=== PATIENT | male | born 1960 | race Caucasian/White ===

== ENCOUNTER 2016-11-02 05:38 | Inpatient (IN) | payer OTHER ==
[2016-11-02 05:58] LABS: Hematocrit 38.8 % (42.0-52.0); Hemoglobin 13.3 gm/dL (13.5-18.0); Mean Cell Volume 94.6 fl (78-100); Mean Corpuscular Hemoglobin 32.4 pg (27-31); Mean Corpuscular Hgb Conc 34.3 g/dl (32-36); Mean Platelet Volume 9.3 fl (6.0-9.5); Neutrophil # 9.5 K/mm3 (1.3-6.0); Neutrophil % 70.9 % (42-75.0); Platelet Count 277 K/mm3 (150-450); Red Cell Distribution Width 12.1 % (11.5-14.0); White Blood Count 13.4 K/mm3 (4.0-10.5)
[2016-11-02 06:07] LABS: INR 0.96 INR (0.90-1.10)
[2016-11-02 06:11] LABS: Albumin * 3.6 gm/dl (3.4-5.0); BUN/Creatinine Ratio 12.3 (9.0-21.6); Bilirubin, Total 0.3 mg/dL (0.0-1.1); Ca. Corrected For Albumin 8.5 mg/dL (8.4-10.2); Calcium * 8.5 mg/dL (7.9-10.9); Carbon Dioxide 22.2 mmol/L (24-32.6); Potassium 4.2 mmol/L (3.4-4.6)
[2016-11-02 06:15] LABS: Partial Thrombolplastin Time 20.7 Seconds (24-32)
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
[2016-11-02] MEDS ORDERED: MORPHINE SULFATE 4 MG/ML SYRG ONE (08:16)
[2016-11-02] MEDS ORDERED: MORPHINE SULFATE 4 MG/ML SYRG IV ONE ×2 (08:20→08:32)
[2016-11-02] MEDS: NORMAL SALINE 1,000 ML IV PRN ×2 (09:03→18:48)
[2016-11-02 09:18] LABS: Urine Bilirubin Negative (NEGATIVE); Urine Ketone 5 mg/dL (NEGATIVE); Urine Nitrite Negative (NEGATIVE); Urine Protein Negative (NEGATIVE); Urine Urobilinogen Normal (NORMAL)
[2016-11-02] MEDS ORDERED: ONDANSETRON HCL/PF 2 MG/ML VIAL IV PRN (09:25)
[2016-11-02 09:34] LABS: Urine Appearance Clear; Urine Bacteria None Seen; Urine Blood 10 /ul (NEGATIVE); Urine Color Yellow; Urine RBC None Seen /hpf (0-5); Urine WBC None Seen /hpf (0-5)
[2016-11-02 09:38] LABS: Cocaine Ur Negative (NEGATIVE); Urine Barbiturate Negative (NEGATIVE); Urine Benzodiazepines Negative (NEGATIVE); Urine Opiates Negative (NEGATIVE); Urine PCP Negative (NEGATIVE); Urine THC Negative (NEGATIVE)
[2016-11-02] MEDS: MORPHINE SULFATE 4 MG/ML SYRG IV PRN ×2 (09:54→10:20)
[2016-11-02] MEDS: PANTOPRAZOLE SODIUM 40 MG in NORMAL SALINE 100 ML IV SCH (10:00)
[2016-11-02] MEDS: MORPHINE SULFATE 2 MG/ML DISP.SYRIN IV PRN ×8 (11:12→22:20)
[2016-11-02] MEDS: oxyCODONE HCL/ACETAMINOPHEN 1 TAB TABLET PO PRN ×2 (16:21→20:31)
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
[2016-11-03] MEDS: oxyCODONE HCL/ACETAMINOPHEN 1 TAB TABLET PO PRN ×5 (01:24→22:43)
[2016-11-03] MEDS: MORPHINE SULFATE 2 MG/ML DISP.SYRIN IV PRN (01:28)
[2016-11-03] MEDS: NORMAL SALINE 1,000 ML IV PRN ×3 (02:51→18:51)
[2016-11-03] MEDS ORDERED: BISACODYL 5 MG TABLET.DR PO ONE ×2 (06:45→18:10)
[2016-11-03] MEDS: KETOROLAC TROMETHAMINE 30 MG/ML VIAL IV SCH ×3 (07:35→18:33)
[2016-11-03] MEDS: PANTOPRAZOLE SODIUM 40 MG in NORMAL SALINE 100 ML IV SCH (09:16)
[2016-11-03] MEDS: SODIUM CHLORIDE 45 SPRAY BTL NS SCH ×2 (13:49→21:12)
[2016-11-03] MEDS: FLUTICASONE PROPIONATE 120 SPRAY INHALER NS SCH (13:49)
--- NOTE | 2016-11-03 18:25 | PN ---
Dictated Progress Note - Date and Time Seen: Date: 11/03/16 Time: 18:12 - Progress Note Narrative: Vital Signs - Last Taken Temp 37.0 C 11/03/16 14:27 Pulse 63 11/03/16 14:27 Resp 20 11/03/16 14:27 BP 108/48 11/03/16 14:27 Pulse Ox 95 11/03/16 14:27 His VS have remained normal. Has resisted being OOB without a lot of encouragement, but did ambulate to BR with walker. Not much appetite, but did pass gas. Very gurgley--upper airway noise changes with cough. Poor inspiratory effort. CXR no visible pneumothorax. Will add Toradol for pain and institute cornet. Encourage OOB with goal of discharge in AM
[2016-11-04] MEDS: KETOROLAC TROMETHAMINE 30 MG/ML VIAL IV SCH ×4 (01:28→18:42)
[2016-11-04] MEDS: NORMAL SALINE 1,000 ML IV PRN (02:56)
[2016-11-04] MEDS: oxyCODONE HCL/ACETAMINOPHEN 1 TAB TABLET PO PRN ×5 (02:57→19:36)
[2016-11-04] MEDS: SODIUM CHLORIDE 45 SPRAY BTL NS SCH ×2 (09:37→20:19)
[2016-11-04] MEDS: FLUTICASONE PROPIONATE 120 SPRAY INHALER NS SCH (09:37)
[2016-11-04] MEDS: PANTOPRAZOLE SODIUM 40 MG in NORMAL SALINE 100 ML IV SCH (10:19)
[2016-11-04] MEDS ORDERED: BISACODYL 5 MG TABLET.DR PO ONE (15:08)
--- NOTE | 2016-11-04 19:05 | PN ---
Dictated Progress Note - Date and Time Seen: Date: 11/04/16 Time: 19:00 - Progress Note Narrative: Vital Signs - Last Taken Temp 36.6 C 11/04/16 18:54 Pulse 75 11/04/16 18:54 Resp 20 11/04/16 18:54 BP 114/59 11/04/16 18:54 Pulse Ox 91 11/04/16 18:54 He is much more alert. His rib pain has been better controlled with only Percocet. He still cannot take a deep breath or cough very effectively, however has been using a coronet frequently. He does desaturate with ambulation but has acceptable SaO2 when sitting up. He has ambulated in the [place] and has been seen by PT. His PO intake is still poor however he is passing gas and has no abdominal pain. He has some upper airway gurgling which changes and clears with cough Chest x-ray today reveals no increase in the pneumothorax however there is some increased pleural fluid bilaterally and inspiratory effort is poor. Will encourage pulmonary toilet and increased activity. The situation was discussed with his family. Possibly could be discharged home tomorrow if adequately mobile.
[2016-11-05] MEDS: oxyCODONE HCL/ACETAMINOPHEN 1 TAB TABLET PO PRN ×5 (04:48→18:53)
[2016-11-05] MEDS: KETOROLAC TROMETHAMINE 30 MG/ML VIAL IV SCH ×3 (06:36→13:22)
[2016-11-05] MEDS: SODIUM CHLORIDE 45 SPRAY BTL NS SCH ×2 (08:17→21:02)
[2016-11-05] MEDS: FLUTICASONE PROPIONATE 120 SPRAY INHALER NS SCH (08:17)
[2016-11-05] MEDS: PANTOPRAZOLE SODIUM 40 MG in NORMAL SALINE 100 ML IV SCH (10:21)
[2016-11-05] MEDS ORDERED: BISACODYL 5 MG TABLET.DR PO ONE (18:39)
--- NOTE | 2016-11-05 18:44 | PN ---
Dictated Progress Note - Date and Time Seen: Date: 11/05/16 Time: 18:41 - Progress Note Narrative: Vital Signs - Last Taken Temp 37.1 C 11/05/16 14:00 Pulse 73 11/05/16 14:00 Resp 24 H 11/05/16 14:00 BP 132/53 11/05/16 14:00 Pulse Ox 93 11/05/16 14:00 VS normal and pain controlled if he takes Percocet on schedule. He still is not taking PO well and although passing gas, no BM. No abdominal pain. Walked better/[place] today with less desaturation. CXR shows some improvement of right fluid, pneumothorax more visible (technique ) but no bigger. Will continue 02 and pulmonary toilet with repeat CXR in AM. Repeat Dulcolax
[2016-11-06] MEDS: oxyCODONE HCL/ACETAMINOPHEN 1 TAB TABLET PO PRN ×5 (03:09→21:09)
[2016-11-06] MEDS: PANTOPRAZOLE SODIUM 40 MG in NORMAL SALINE 100 ML IV SCH (09:34)
[2016-11-06] MEDS: FLUTICASONE PROPIONATE 120 SPRAY INHALER NS SCH (09:35)
[2016-11-06] MEDS: SODIUM CHLORIDE 45 SPRAY BTL NS SCH ×2 (09:35→21:46)
[2016-11-06] MEDS: KETOROLAC TROMETHAMINE 30 MG/ML VIAL IV SCH ×4 (12:07→14:11)
[2016-11-06] MEDS ORDERED: MAGNESIUM HYDROXIDE 30 ML UDC PO ONE (16:45)
--- NOTE | 2016-11-06 19:38 | PN ---
Dictated Progress Note - Date and Time Seen: Date: 11/06/16 Time: 19:32 - Progress Note Narrative: Vital Signs - Last Taken Temp 36.7 C 11/06/16 18:11 Pulse 58 L 11/06/16 18:11 Resp 20 11/06/16 18:11 BP 121/58 11/06/16 18:11 Pulse Ox 93 11/06/16 18:11 VS normal. Pain much better. Coughed up a lot of thick green phlem. CXR no appreciable change. Ambulating better. PO still poor, but no abdominal pain and passing gas,"feels like I will have a bowel movement". Will add Levaquin, recheck CXR in AM and probably discharge home tomorrow if continues to improve.
[2016-11-06] MEDS: LEVOFLOXACIN/D5W 750 MG/150 ML BAG IV SCH (21:44)
[2016-11-07] MEDS: oxyCODONE HCL/ACETAMINOPHEN 1 TAB TABLET PO PRN ×4 (02:03→20:11)
[2016-11-07] MEDS: FLUTICASONE PROPIONATE 120 SPRAY INHALER NS SCH (08:26)
[2016-11-07] MEDS: SODIUM CHLORIDE 45 SPRAY BTL NS SCH ×2 (08:26→20:24)
[2016-11-07] MEDS: PANTOPRAZOLE SODIUM 40 MG in NORMAL SALINE 100 ML IV SCH (08:31)
[2016-11-07] MEDS ORDERED: BISACODYL 10 MG SUPP.RECT RC ONE (09:49)
[2016-11-07] MEDS ORDERED: MINERAL OIL 1 ENEMA BTL RC ONE (14:53)
[2016-11-07] MEDS: oxyCODONE HCL 5 MG TABLET PO PRN ×2 (15:10→18:30)
[2016-11-07] MEDS ORDERED: oxyCODONE HCL 5 MG TABLET PO PRN ×2 (18:35→18:36)
--- NOTE | 2016-11-07 18:47 | PN ---
Dictated Progress Note - Date and Time Seen: Date: 11/07/16 Time: 18:43 - second visit - Progress Note Narrative: Vital Signs - Last Taken Temp 36.8 C 11/07/16 15:16 Pulse 73 11/07/16 15:16 Resp 20 11/07/16 15:16 BP 148/66 11/07/16 15:16 Pulse Ox 91 11/07/16 15:16 VS are normal, Sa02 is 99% with 3Lnc although goes down with ambulation. More upper airway noise this morning and does not cough well. Would only walk twice. Very poor PO intake. Did have a BM and passed gas so abdomen less protuberant---refused fleet enema to move more. Discussed option of chest tube both visits and he specifically declined multiple times. Discussed the situation with his . He is not ready for home. Will change to Roxycodone to see if can achieve better pain relief and better cough. He agreed to try to walk one more time tonight.
[2016-11-07] MEDS: LEVOFLOXACIN/D5W 750 MG/150 ML BAG IV SCH (20:15)
[2016-11-07] MEDS ORDERED: SENNOSIDES/DOCUSATE SODIUM 1 TAB TABLET PO SCH (21:00)
[2016-11-07] MEDS ORDERED: LIDOCAINE 1 PATCH ADH..PATCH TP SCH (21:00)
[2016-11-08] MEDS: oxyCODONE HCL/ACETAMINOPHEN 1 TAB TABLET PO PRN ×3 (00:58→10:39)
[2016-11-08 07:47] VITALS: BP 141/63
[2016-11-08] MEDS: PANTOPRAZOLE SODIUM 40 MG in NORMAL SALINE 100 ML IV SCH (08:44)
[2016-11-08] MEDS: SODIUM CHLORIDE 45 SPRAY BTL NS SCH (08:45)
[2016-11-08] MEDS: FLUTICASONE PROPIONATE 120 SPRAY INHALER NS SCH (08:45)
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
== END 2016-11-08 12:50 | disposition home or self-care (01) | DRG 200 ==
LOC: ER 05:38 → MS 09:00
PROVIDERS: ADMIT Surgery; ATTEND Surgery
DX: S27.0XXA Traumatic pneumothorax, initial encounter (principal); S27.321A Contusion of lung, unilateral, initial encounter; S22.43XA Multiple fractures of ribs, bilateral, initial encounter for closed fracture; V48.5XXA Car driver injured in noncollision transport accident in traffic accident, initial encounter; Y92.410 Unspecified street and highway as the place of occurrence of the external cause; G93.0 Cerebral cysts; F17.210 Nicotine dependence, cigarettes, uncomplicated
CPT/HCPCS: 36415; 70450; 71010; 71020; 71260; 72125; 72170; 74177; 80053; 80307; 81001; 82150; 85025; 85610; 85730; 86850; 86900; 93005; 96374; 97110; 97161; 97530; 99285; G0481

== ENCOUNTER 2016-11-18 11:50 | Emergency (ER) | payer OTHER ==
[2016-11-18 12:36] LABS: Albumin * 2.9 gm/dl (3.4-5.0); Anion Gap 15.2 mmol/L (6.8-13.8); BUN/Creatinine Ratio 11.5 (9.0-21.6); Bilirubin, Total 0.6 mg/dL (0.0-1.1); Ca. Corrected For Albumin 9.5 mg/dL (8.4-10.2); Calcium * 8.9 mg/dL (7.9-10.9); Potassium 4.2 mmol/L (3.4-4.6); Total Protein 7.6 gm/dL (6.2-8.2)
[2016-11-18 12:42] LABS: Hematocrit 34.9 % (42.0-52.0); Mean Cell Volume 93.8 fl (78-100); Mean Corpuscular Hemoglobin 32.3 pg (27-31); Mean Corpuscular Hgb Conc 34.4 g/dl (32-36); Mean Platelet Volume 9.4 fl (6.0-9.5); Neutrophil # 9.8 K/mm3 (1.3-6.0); Neutrophil % 74.2 % (42-75.0); Platelet Count 511 K/mm3 (150-450); Red Blood Count 3.72 M/mm3 (4.7-6.0); Red Cell Distribution Width 11.9 % (11.5-14.0); White Blood Count 13.2 K/mm3 (4.0-10.5)
[2016-11-18] MEDS ORDERED: MORPHINE SULFATE 4 MG/ML SYRG IM ONE (13:14)
[2016-11-18] MEDS ORDERED: PROMETHAZINE HCL 25 MG/ML AMPUL IM ONE (13:14)
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
[2016-11-18] MEDS ORDERED: MORPHINE SULFATE 4 MG/ML SYRG ONE (13:23)
[2016-11-18] MEDS ORDERED: PROMETHAZINE HCL 25 MG/ML AMPUL ONE (13:23)
[2016-11-18] MEDS ORDERED: APIXABAN 2.5 MG TABLET PO ONE (15:00)
[2016-11-18 15:15] VITALS: BP 119/63
== END 2016-11-18 15:08 | disposition home or self-care (01) ==
LOC: ER 11:50
DX: I82.4Z2 Acute embolism and thrombosis of unspecified deep veins of left distal lower extremity (principal); Z72.0 Tobacco use

== ENCOUNTER 2017-08-10 08:10 | Day surgery (SDC) | payer OTHER ==
[~2017-08-10 08:10] MED LIST: RINGER'S SOLUTION,LACTATED 1,000 ML IV PRN
[2017-08-10] MEDS ORDERED: RINGER'S SOLUTION,LACTATED 1,000 ML IV ONE (08:35)
--- NOTE | 2017-08-10 09:51 | OR ---
Operative Report - Dictated Report Narrative: Date: 08/10/2017 Preoperative diagnosis: Screening for colon cancer Postoperative diagnosis: Mild sigmoid diverticulosis. Probable hyperplastic polyps of the rectum. Procedure: Total colonoscopy with biopsy. Staff surgeon: Chandler Holland MD Anesthesia: MAC per AGRICULTURIST EBL: Minimal Specimens: Polyp at 10 cm, cold forceps biopsy Description of procedure: After informed consent and appropriate sedation the patient was placed in the left lateral decubitus position. Flexible fiberoptic video colonoscope was introduced and advanced under direct vision without difficulty to the cecum. The usual landmarks were identified. Preparation was excellent and excellent views were obtained. The findings were normal cecum, ascending colon, hepatic flexure, transverse colon, splenic flexure, descending colon, sigmoid colon with the exception of 2 diverticuli. The rectum had 3 probable hyperplastic polyps. The largest was 5 mm and this was biopsied with cold forceps and then destroyed with electrocautery. Retroflex view was normal. External anus inspection was normal and sphincter tone was normal. The patient tolerated the procedure well without apparent complications and was discharged from the endoscopy suite in stable condition.
[2017-08-10 10:42] VITALS: BP 111/66
== END 2017-08-10 08:11 | disposition home or self-care (01) ==
LOC: AMB 08:10
PROVIDERS: ATTEND Specialist
PROC: 0DBP8ZX Excision of Rectum, Via Natural or Artificial Opening Endoscopic, Diagnostic (ICD-10-PCS; principal; 2017-08-10 09:00)
DX: Z12.11 Encounter for screening for malignant neoplasm of colon (principal); K62.1 Rectal polyp; K57.30 Diverticulosis of large intestine without perforation or abscess without bleeding; F17.210 Nicotine dependence, cigarettes, uncomplicated; Z68.26 Body mass index [BMI] 26.0-26.9, adult